=== PATIENT | male | born 1930 | race Hispanic/Latino ===

== ENCOUNTER 2018-12-03 18:30 | Emergency (ER) | payer MEDICARE ==
[2018-12-03 19:05] VITALS: TEMP 97.6; BMI 21.2
[2018-12-03 21:32] VITALS: BP 155/71; PULSE 72; O2SAT 97
--- NOTE | 2018-12-03 21:52 | ED PDOC ---
Arrival/HPI - General Chief Complaint: Trauma Time Seen by Provider: 12/03/18 18:49 Historian: Patient - History of Present Illness Narrative History of Present Illness (Text): 12/03/18 21:48 88-year-old male presents today with left-sided facial injury status post fall. Patient states he was feeling fine today was walking down the stairs slipped on ice and fell forward injuring the left side of his face. He denies loss of con sciousness. He denies headache dizziness or weakness. Denies blurred vision. Denies abdominal pain. No chest pain or shortness of breath. Patient denies dental pain. No medications were taken at home. Incident occurred prior to arrival. Past Medical History - Provider Review Nursing Documentation Reviewed: Yes - Travel History Have you recently traveled outside [place] w/in the past 3 mons?: No - Infectious Disease Hx of Infectious Diseases: None - Tetanus Immunization Tetanus Immunization: Up to Date - Cardiac Hx Cardiac Disorders: Yes - Pulmonary Hx Respiratory Disorders: No - Neurological Hx Neurological Disorder: No - HEENT Hx HEENT Disorder: Yes (USES READING GLASSES) - Renal Hx Renal Disorder: No - Endocrine/Metabolic Hx Endocrine Disorders: No - Hematological/Oncological Hx Blood Disorders: Yes Hx Anemia: Yes - Integumentary Hx Dermatological Disorder: No - Musculoskeletal/Rheumatological Hx Musculoskeletal Disorders: Yes Hx Arthritis: Yes - Gastrointestinal Hx Gastrointestinal Disorders: Yes - Genitourinary/Gynecological Hx Genitourinary Disorders: No Hx Prostate Problems: No - Psychiatric Hx Psychophysiologic Disorder: No Hx Substance Use: No - Surgical History Hx Joint Replacement: Yes (b/l knee, b/l hip, b/l shoulder) Hx Musculoskeletal Surgery: Yes Hx Orthopedic Surgery: Yes Hx Valve Replacement: Yes - Anesthesia Hx Anesthesia: Yes - Suicidal Assessment Feels Threatened In Home Enviroment: No Family/Social History - Physician Review Nursing Documentation Reviewed: Yes Family/Social History: Unknown Family HX Smoking Status: Former Smoker Hx Alcohol Use: Yes Hx Substance Use: No Hx Substance Use Treatment: No Allergies/Home Meds Allergies/Adverse Reactions: Allergies No Known Allergies Allergy (Verified 12/03/18 18:43) Home Medications: Home Meds Medication Instructions Recorded Confirmed oxyCODONE/Acetaminophen [Percocet 1 tab PO TID 07/09/18 07/09/18 5/325 mg Tab] Review of Systems - Review of Systems Constitutional: absent: Fatigue, Fevers Eyes: absent: Vision Changes, Photophobia, Eye Pain ENT: absent: Sore Throat, Sinus Congestion Respiratory: absent: SOB, Cough Cardiovascular: absent: Chest Pain, Palpitations Gastrointestinal: absent: Abdominal Pain, Nausea, Vomiting Genitourinary Male: absent: Dysuria, Frequency, Hematuria Musculoskeletal: absent: Arthralgias, Back Pain, Neck Pain Skin: Other (abrasions) Neurological: absent: Headache, Dizziness Psychiatric: absent: Anxiety, Depression Physical Exam Vital Signs Reviewed: Yes Vital Signs Temp Pulse Resp BP Pulse Ox 12/03/18 21:23 97.6 F 72 155/71 H 97 12/03/18 18:43 97.6 F 74 17 109/38 L 96 Temperature: Afebrile Blood Pressure: Normal Pulse: Regular Respiratory Rate: Normal Appearance: Positive for: Well-Appearing, Non-Toxic, Comfortable Pain Distress: None Mental Status: Positive for: Alert and Oriented X 3 - Systems Exam Head: Present: Tenderness (left inferior orbit; + ecchymosis; minimal tenderness, no laceration or abrasion. minimal swelling. no step offs or crepitus. ), Swelling, Other (there is a healing small 1cm wound to the upper lip (pt states it is from shaving)) Pupils: Present: PERRL Extroacular Muscles: Present: EOMI. No: Entrapment Conjunctiva: Present: Normal Ears: Present: Normal, NORMAL TM Mouth: Present: Moist Mucous Membranes. No: Drooling, Trismus Pharnyx: Present: Normal. No: ERYTHEMA, EXUDATE Nose (External): Present: Atraumatic Nose (Internal): Present: Normal Inspection Neck: Present: Normal Range of Motion, Trachea Midline. No: MIDLINE TENDERNESS, Paraspinal Tenderness Respiratory/Chest: Present: Clear to Auscultation, Good Air Exchange. No: Respiratory Distress, Accessory Muscle Use, Tender to Palpation Cardiovascular: Present: Regular Rate and Rhythm, Normal S1, S2. No: Murmurs Abdomen: Present: Other (no ecchymosis). No: Tenderness, Distention, Rebound, Guarding Back: Present: Normal Inspection. No: CVA Tenderness, Midline Tenderness, Paraspinal Tenderness Upper Extremity: Present: Other (stiff ROM of all extremities. no edema, no er ythema; no ecchymosis; ) Lower Extremity: Present: Normal Inspection, Normal ROM Neurological: Present: GCS=15, Speech Normal Skin: Present: Warm, Dry, Normal Color Psychiatric: Present: Alert, Oriented x 3 Medical Decision Making ED Course and Treatment: 12/03/18 21:50 88-year-old male presents today with head injury status post mechanical fall. CAT scan of the head:FINDINGS: BRAIN Chronic periventricular and subcortical microvascular disease is seen. VENTRICLES: There is generalized parenchymal atrophy noted as demonstrated by symmetrical dilatation of ventricles and sulci. ORBITS: The orbits are unremarkable. SINUSES AND MASTOIDS: The paranasal sinuses and mastoid air cells are clear. BONES: No fracture. SOFT TISSUES: Unremarkable. MISCELLANEOUS: No acute intracranial pathology. IMPRESSION: 1. There is generalized parenchymal atrophy noted as demonstrated by symmetrical dilatation of ventricles and sulci. 2. Chronic periventricular and subcortical microvascular disease is seen. 3. No acute intracranial pathology. Electronically signed on Dec 03, 2018 9:43:31 PM EST by: Yuan Rand M.D., MBA Certified By [employer] Fellowship Trained MRI and CT Specialist CAT scan of the facial bones:FINDINGS: BONES: No acute fracture or aggressive appearing osseous lesion. The mandible is intact. SOFT TISSUES: The soft tissues are unremarkable. SINUSES: The sinuses are clear. ORBITS: The orbits are normal. No retrobulbar hematoma or mass. IMPRESSION: Unremarkable maxillofacial CT. Electronically signed on Dec 03, 2018 9:44:50 PM EST by: Yuan Rand M.D., MBA Certified By [employer] Fellowship Trained MRI and CT Specialist CAT scan of the cervical spine:FINDINGS: ALIGNMENT: Bony alignment is anatomic. DEGENERATIVE CHANGES: No significant canal stenosis or neural foraminal narrowing evident. SOFT TISSUES: The prevertebral soft tissues are within normal limits. BONES: No acute fracture or aggressive appearing osseous lesion. MISCELLANEOUS: S/p posterior fusion at C4-C7. Hardware is intact. IMPRESSION: S/p posterior fusion at C4-C7. No acute pathology. Electronically signed on Dec 03, 2018 9:46:48 PM EST by: Yuan Rand M.D., MBA Certified By [employer] Fellowship Trained MRI and CT Specialist Patient reassessment. Patient remains nontoxic well-appearing in no distress resting comfortably in the emergency room. I discussed all results in depth with the patient and his son. I've advised follow-up with the primary care physician and advised immediate return if symptoms worsen persist or if new concerning symptoms develop Patient verbalizes understanding of discharge instructions and need for immediate followup. all aspects of this case were discussed the attending of record. Impression: Head injury, facial contusion Tylenol every 4 hours as needed for pain Follow the primary care physician within the next 2 days Follow-up the ENT specialist within the next 2 days Return immediately if symptoms worsen persist or if new concerning symptoms develop. - RAD Interpretation Radiology Orders: 12/03/18 19:09 HEAD W/O CONTRAST [CT] Stat MAXILLOFACIAL W/O CONTRAST [CT] Stat 12/03/18 19:10 CERVICAL SPINE W/O CONTRAST [CT] Stat Disposition/Present on Arrival - Present on Arrival Any Indicators Present on Arrival: No History of DVT/PE: No History of Uncontrolled Diabetes: No Urinary Catheter: No History of Decub. Ulcer: No History Surgical Site Infection Following: Orthopedic Procedures - Disposition Have Diagnosis and Disposition been Completed?: Yes Diagnosis: Head injury, Facial contusion Disposition: HOME/ ROUTINE Disposition Time: 21:52 Patient Plan: Discharge Condition: GOOD Discharge Instructions (ExitCare): [place], Closed Head Injury (DC) Additional Instructions: Tylenol every 4 hours as needed for pain Follow the primary care physician within the next 2 days Follow-up the ENT specialist within the next 2 days Return immediately if symptoms worsen persist or if new concerning symptoms develop. Referrals: Patrick Green MD [Staff Provider] - Follow up with primary Forms: [employer] ([place])
[2018-12-03 22:35] VITALS: RESP 18
--- NOTE | 2018-12-04 08:27 | CT ---
Date of service: 12/03/2018 PROCEDURE: CT HEAD WITHOUT CONTRAST. HISTORY: fall/ head injury COMPARISON: 10/14/2014 TECHNIQUE: Axial computed tomography images were obtained through the head/brain without intravenous contrast. Radiation dose: Total exam DLP = 932.55 mGy-cm. This CT exam was performed using one or more of the following dose reduction techniques: Automated exposure control, adjustment of the mA and/or kV according to patient size, and/or use of iterative reconstruction technique. FINDINGS: HEMORRHAGE: No intracranial hemorrhage. BRAIN: No mass effect or edema. Mild atrophy and age-related changes. VENTRICLES: Unremarkable. No hydrocephalus. CALVARIUM: Unremarkable. PARANASAL SINUSES: Unremarkable as visualized. No significant inflammatory changes. MASTOID AIR CELLS: Unremarkable as visualized. No inflammatory changes. OTHER FINDINGS: The report concurs with the preliminary [facility] report IMPRESSION: No acute findings
--- NOTE | 2018-12-04 08:30 | CT ---
Date of service: 12/03/2018 PROCEDURE: CT MAXILLOFACIAL BONES WITHOUT CONTRAST HISTORY: fall, left facial injury COMPARISON: None available. TECHNIQUE: Contiguous axial CT images of the maxillofacial bones were obtained. Coronal and sagittal reformats were generated. Radiation dose: Total exam DLP = 864.82 mGy-cm. This CT exam was performed using one or more of the following dose reduction techniques: Automated exposure control, adjustment of the mA and/or kV according to patient size, and/or use of iterative reconstruction technique. FINDINGS: NASAL BONES: Unremarkable. ORBITS: Unremarkable. PARANASAL SINUSES/ MASTOIDS: Clear. MAXILLA: Unremarkable. MANDIBLE/ TEMPOROMANDIBULAR JOINTS: Unremarkable. SKULL BASE: Unremarkable. TEMPORAL BONES: Middle ears and mastoid grossly unremarkable. OTHER FINDINGS: The report concurs with the preliminary [facility] report IMPRESSION: Unremarkable non contrast enhanced CT of the maxillofacial bones.
--- NOTE | 2018-12-04 08:34 | CT ---
Date of service: 12/03/2018 PROCEDURE: CT Cervical Spine without contrast HISTORY: fall COMPARISON: None available. TECHNIQUE: Axial computed tomography images were obtained of the cervical spine without the use of intravenous contrast. Coronal and sagittal reformatted images were created and reviewed. Radiation dose: Total exam DLP = 500.09 mGy-cm. This CT exam was performed using one or more of the following dose reduction techniques: Automated exposure control, adjustment of the mA and/or kV according to patient size, and/or use of iterative reconstruction technique. FINDINGS: VERTEBRAE: No fracture. Normal alignment. No destructive bony lesion. DISCS/SPINAL CANAL/NEURAL FORAMINA: Laminectomy and facet fusion from C3 through C7. No acute findings PARASPINAL SOFT TISSUES: Unremarkable. OTHER FINDINGS: The report concurs with the preliminary [facility] report IMPRESSION: Laminectomy and facet fusion from C3 through C7. No acute findings
== END 2018-12-03 22:24 | disposition home or self-care (01) ==
LOC: ED 18:30
DX: S00.83XA Contusion of other part of head, initial encounter (principal); W00.1XXA Fall from stairs and steps due to ice and snow, initial encounter; Z87.891 Personal history of nicotine dependence

== ENCOUNTER 2018-12-04 19:05 | Emergency (ER) | payer MEDICARE ==
[2018-12-04 19:34] VITALS: BMI 21.2
[2018-12-04 19:38] VITALS: TEMP 97.5
--- NOTE | 2018-12-04 20:31 | ED PDOC ---
Arrival/HPI - General Chief Complaint: Lower Extremity Problem/Injury Time Seen by Provider: 12/04/18 19:40 Historian: Patient - History of Present Illness Narrative History of Present Illness (Text): 12/04/18 20:27 88-year-old male states that he fell yesterday, was seen and evaluated in this emergency room, however yesterday he was not having right knee pain, therefore he returned to the emergency room for evaluation of R knee pain. Otherwise reports no numbness, decrease in range of motion or any other joint pain. Reports no other injuries. Past Medical History - Infectious Disease Hx of Infectious Diseases: None - Tetanus Immunization Tetanus Immunization: Up to Date - Cardiac Hx Cardiac Disorders: Yes - Pulmonary Hx Respiratory Disorders: No - Neurological Hx Neurological Disorder: No - HEENT Hx HEENT Disorder: Yes (USES READING GLASSES) - Renal Hx Renal Disorder: No - Endocrine/Metabolic Hx Endocrine Disorders: No - Hematological/Oncological Hx Blood Disorders: Yes Hx Anemia: Yes - Integumentary Hx Dermatological Disorder: No - Musculoskeletal/Rheumatological Hx Musculoskeletal Disorders: Yes Hx Arthritis: Yes Hx Falls: Yes - Gastrointestinal Hx Gastrointestinal Disorders: Yes - Genitourinary/Gynecological Hx Genitourinary Disorders: No Hx Prostate Problems: No - Psychiatric Hx Psychophysiologic Disorder: No Hx Substance Use: No - Surgical History Hx Joint Replacement: Yes (b/l knee, b/l hip, b/l shoulder) Hx Musculoskeletal Surgery: Yes Hx Orthopedic Surgery: Yes Hx Valve Replacement: Yes - Anesthesia Hx Anesthesia: Yes - Suicidal Assessment Feels Threatened In Home Enviroment: No Family/Social History Family/Social History: No Known Family HX Smoking Status: Former Smoker Hx Alcohol Use: Yes Hx Substance Use: No Hx Substance Use Treatment: No Allergies/Home Meds Allergies/Adverse Reactions: Allergies No Known Allergies Allergy (Verified 12/04/18 19:33) Home Medications: Home Meds Medication Instructions Recorded Confirmed oxyCODONE/Acetaminophen [Percocet 1 tab PO TID 07/09/18 12/04/18 5/325 mg Tab] Review of Systems - Review of Systems Constitutional: absent: Fatigue, Fevers Musculoskeletal: Arthralgias. absent: Back Pain, Neck Pain, Joint Swelling, Myalgias Skin: absent: Rash, Pruritis, Skin Lesions Physical Exam Vital Signs Temp Pulse Resp BP Pulse Ox 12/04/18 19:37 97.5 F L 62 18 93/53 L 96 Temperature: Afebrile Blood Pressure: Normal Pulse: Regular Respiratory Rate: Normal Appearance: Positive for: Well-Appearing, Non-Toxic, Comfortable Pain Distress: None Mental Status: Positive for: Alert and Oriented X 3 - Systems Exam Upper Extremity: Present: Normal Inspection. No: Edema Lower Extremity: Present: Normal Inspection, NORMAL PULSES, Normal ROM, Neurovascularly Intact, Capillary Refill < 2 s. No: Edema, Tenderness, Swelling, Deformity, Temperature Abnormalties Neurological: Present: GCS=15, CN II-XII Intact, Speech Normal Skin: Present: Warm, Dry, Normal Color. No: Rashes Psychiatric: Present: Alert, Oriented x 3, Normal Insight, Normal Concentration Medical Decision Making ED Course and Treatment: 12/04/18 20:29 Plan : - XR R knee XR R knee: +knee replacement, no fracture, no dislocation, as read by PA On reevaluation, patient remains awake alert and oriented 3 in no acute distress. XR results d/w him, advised RICE to the knee. Rick wrap applied. Advised to follow up with primary care physician or his ortho in 1-2 days without fail. Advised to continue to take his percocet Rx - which he normally takes for his arthritis. Return to the emergency room at any time for any new or worsening symptoms. Patient states he fully agrees with and understands discharge instructions. States that he agrees with the plan and disposition. Verbalized and repeated discharge instructions and plan. I have given the patient opportunity to ask any additional questions. - RAD Interpretation Radiology Orders: 12/04/18 19:42 KNEE RIGHT 2 VIEWS (AP & LAT) [RAD] Stat - PA / E BUSINESS MANAGER / Resident Statement MD/DO has reviewed & agrees with the documentation as recorded. Disposition/Present on Arrival - Present on Arrival Any Indicators Present on Arrival: No History of DVT/PE: No History of Uncontrolled Diabetes: No Urinary Catheter: No History of Decub. Ulcer: No History Surgical Site Infection Following: Orthopedic Procedures - Disposition Have Diagnosis and Disposition been Completed?: Yes Diagnosis: Right knee pain Disposition: HOME/ ROUTINE Disposition Time: 20:30 Patient Plan: Discharge Condition: STABLE Discharge Instructions (ExitCare): Knee Pain (DC) Additional Instructions: Thank you for letting us take care of you today. You were treated for right knee pain. The emergency medical care you received today was directed at your acute symptoms. It may take several days for your symptoms to resolve. Return to the Emergency Department if your symptoms worsen, do not improve, or if you have any other problems. Please contact your doctor in 2 days for re-evaluation and follow up. Bring any paperwork you were given at discharge with you along with any medications you are taking to your follow up visit. Our treatment cannot replace ongoing medical care by a primary care provider (PCP) outside of the emergency department. Thank you for allowing the [facility] team to be part of your care today. If you had an X-Ray : A Radiologist will review the ED reading if any change in treatment is needed we will contact you.
[2018-12-05 03:30] VITALS: BP 119/62; PULSE 97; RESP 19; O2SAT 99
--- NOTE | 2018-12-05 10:07 | RAD ---
Date of service: 12/04/2018 PROCEDURE: Right Knee Radiographs. HISTORY: pain COMPARISON: None. FINDINGS: BONES: Status post right knee arthroplasty. JOINTS: No evidence of dislocation of the right knee joint. JOINT EFFUSION: No radiographic evidence of significant joint effusion. OTHER FINDINGS: None. IMPRESSION: No evidence of acute fracture or dislocation. Status post right knee arthroplasty.
== END 2018-12-04 20:41 | disposition home or self-care (01) ==
LOC: ED 19:05
DX: M25.561 Pain in right knee (principal); M19.90 Unspecified osteoarthritis, unspecified site; Z87.891 Personal history of nicotine dependence

== ENCOUNTER 2019-02-25 08:22 | Outpatient (CLI) | payer MEDICARE | END 2019-02-25 08:23 | disposition home or self-care (01) | LOC: PAT 08:22 ==